=== PATIENT | female | born 1990 | race Two or more races ===

== ENCOUNTER 2019-03-16 18:11 | Emergency (ER) | payer OTHER ==
[2019-03-16 18:37] VITALS: BP 96/60; PULSE 72; TEMP 98.1; BMI 23.2
[2019-03-16] MEDS ORDERED: KETOROLAC TROMETHAMINE 60 MG/2 ML VIAL IM ONE (19:17)
[2019-03-16] MEDS ORDERED: KETOROLAC TROMETHAMINE 60 MG/2 ML VIAL ONE (19:18)
--- NOTE | 2019-03-16 19:58 | PDOC ---
Documentation entered by Berenice Moon SCRIBE, acting as scribe for Rain Carvajal MD. Rain Carvajal MD: This documentation has been prepared by the Sarai albright Adrianna, SCRIBE, under my direction and personally reviewed by me in its entirety. I confirm that the documentation accurately reflects all work, treatment, procedures, and medical decision making performed by me. History of Present Illness - General Chief Complaint: Pain Stated Complaint: R Pelvic Pain History Source: Patient Exam Limitations: No Limitations - History of Present Illness Initial Comments: The patient is a 28 year old female , with a significant PMH of seizures, who presents to the ED for evaluation of right pelvic pain for 1 week. Patient complains of right sided hip flexor pain, that is worse with movement and leaning to the left side. Patient notes she has been cleaning her house this weekend (moving heavy furniture around) and has been carrying her 1 year old, which exacerbates her pain. She denies any trauma to the area, dysuria, or hematuria. Her LMP was last month and normal. She is currently sexually active with her , using condoms. Denies any vaginal discharge. PAST MEDICAL HISTORY: seizures PAST SURGICAL HISTORY: no significant history FAMILY HISTORY: no pertinent history SOCIAL HISTORY: Pt lives with family and is employed. MEDICATIONS: reviewed ALLERGIES: As per nursing notes Adult ROS General: No fevers or chills, no weakness, no weight loss HEENT: No change in vision. No sore throat,. No ear pain CardioVascular: No chest pain or shortness of breath Respiratory:No cough, or wheezing. Gastrointestinal: no nausea, vomiting, diarrhea or constipation, No rectal bleeding Genitourinary: No dysuria, hematuria, or frequency Musculoskeletal: +Right pelvic pain. No joint or muscle swelling Neurologic: No headache, vertigo, dizziness or loss of consciousness Psychiatric: nor depression Skin: No rashes or easy bruising Endocrine: no increased thirst or abnormal weight change Allergic: no skin or latex allergy All other systems reviewed and normal Adult Exam: General: Well-nourished well-developed individual, no acute distress HEENT: Throat: Normal, tonsils normal, no erythema or exudate Neck: Supple, no meningeal signs, no lymphadenopathy Eyes::Pupils equal reactive and round, extraocular motion intact Chest: Nontender to palpation Cardiac: S1-S2 normal, regular rate and rhythm, no murmurs rubs or gallops Respiratory: Lungs clear to auscultation bilateral Abdomen: Soft, nondistended, normal bowel sounds, nontender to palpation diffusely Extremities: +Pain is reproduced on palpation of the right hip flexors. Warm, dry, no cyanosis, clubbing, or edema Skin: No rashes Neuro: Alert and oriented x3, nonfocal exam, grossly intact, normal gait Psych: Normal mood and affect 03/16/19 19:53 Assessment and plan: This is a 28-year-old female comes in complaining of pain in her right pelvic area. However on exam patient does localize the pain to her right hip flexors. Patient said she has been moving a heavy couch and also has a young child that she carries on her opposite hip. Both of these most likely are contributing to the pain. Patient was given Toradol with improvement in symptoms. With a urine and urine were also to send and the urine does show 3+ leukocyte esterase so culture was ordered and patient was started on Macrobid a first dose was given here in the ED. Past History - Past Medical History Allergies/Adverse Reactions: Allergies Allergy/AdvReac Type Severity Reaction Status Date / Time No Known Allergies Allergy Unverified 03/16/19 18:13 Home Medications: Ambulatory Orders Nitrofurantoin Monohyd/M-Cryst [Macrobid -] 100 mg PO BID #10 capsule 03/16/19 levETIRAcetam [Keppra -] 500 mg PO BID 03/16/19 COPD: No Seizures: Yes - Reproductive History Is Patient Now?: No (#): 3 Para: 3 Cervical CA: No Dysfunctional Uterine Bleeding: No Ectopic : No Endometrial CA: No Polycystic Ovaries: No Therapeutic (s) & number: No Tubal Ligation: No Spontaneous : 0 - Psycho Social/Smoking Cessation Hx Smoking History: Never smoked *Physical Exam - Vital Signs Last Vital Signs Temp Pulse Resp BP Pulse Ox 98.1 F 72 18 96/60 100 03/16/19 18:19 03/16/19 18:19 03/16/19 18:19 03/16/19 18:19 03/16/19 18:19 ED Treatment Course - ADDITIONAL ORDERS Additional order review: Laboratory Results 03/16/19 03/16/19 19:00 19:00 Urine Color Yellow Urine Appearance Clear Urine pH 6.0 Urine Protein 1+ H Urine Glucose (UA) Negative Urine Ketones Trace Urine Blood 1+ H Urine Nitrite Negative Urine Bilirubin Negative Urine Urobilinogen 0.2 Ur Leukocyte Esterase 3+ Urine HCG, Qual Negative - Medications Given in the ED: ED Medications Discontinued Medications Generic Name Dose Route Start Last Admin Trade Name Stefany PRN Reason Stop Dose Admin Ketorolac Tromethamine 60 mg 03/16/19 19:17 03/16/19 19:22 Toradol Injection - IM 03/16/19 19:18 60 mg ONCE ONE Administration Discharge - Discharge Information Problems reviewed: Yes Clinical Impression/Diagnosis: Cystitis Strain of flexor muscle of right hip Qualifiers: Encounter type: initial encounter Qualified Code(s): S76.011A - Strain of muscle, fascia and tendon of right hip, initial encounter Condition: Stable Disposition: HOME - Admission No - Follow up/Referral - Patient Discharge Instructions Additional Instructions: For the pain take ibuprofen or Aleve as directed on the bottle. Your urine also showed that you have a urinary tract infection I am starting you on an antibiotic he will take it twice a day for 5 days. I sent a prescription to your pharmacy for Macrobid. Return to the emergency department immediately with ANY new, persistent or worsening symptoms. Continue any medications as previously prescribed by your physician. You should follow up with your primary doctor as soon as possible regarding today's emergency department visit. . Please make sure your doctor reviews the results of your emergency evaluation. Thank you for coming to the Emergency Department today for your care. It was a pleasure to see you today. Please note that your evaluation is INCOMPLETE until you follow-up with your doctor. - Post Discharge Activity
[2019-03-16] MEDS ORDERED: NITROFURANTOIN MACROCRYSTAL 50 MG CAPSULE (FP) ONE (19:59)
[2019-03-16] MEDS ORDERED: NITROFURANTOIN MACROCRYSTAL 50 MG CAPSULE (FP) PO SCH (20:00)
[2019-03-16 21:21] LABS: EPITHELIAL CELLS MODERATE /hpf
== END 2019-03-16 20:03 | disposition home or self-care (01) ==
LOC: FER 18:11
PROC: 3E0233Z Introduction of Anti-inflammatory into Muscle, Percutaneous Approach (ICD-10-PCS; principal; 2019-03-16)
DX: N30.90 Cystitis, unspecified without hematuria (principal); S76.011A Strain of muscle, fascia and tendon of right hip, initial encounter; X50.9XXA Other and unspecified overexertion or strenuous movements or postures, initial encounter; Y93.89 Activity, other specified; Y92.9 Unspecified place or not applicable; G40.909 Epilepsy, unspecified, not intractable, without status epilepticus
CPT/HCPCS: 81003; 81015; 84703; 87086; 96372; 99282-25

== ENCOUNTER 2019-04-12 18:18 | Emergency (ER) | payer OTHER ==
[2019-04-12 18:34] VITALS: BMI 23.1
[2019-04-12 18:42] VITALS: BP 104/63; PULSE 66; TEMP 98.2
[2019-04-12 19:31] LABS: EPITHELIAL CELLS FEW /hpf
--- NOTE | 2019-04-12 19:52 | PDOC ---
Documentation entered by Cele Harvey SCRIBE, acting as scribe for Rain Carvajal MD. Rain Carvajal MD: This documentation has been prepared by the Wes albright Joy, SCRIBE, under my direction and personally reviewed by me in its entirety. I confirm that the documentation accurately reflects all work, treatment, procedures, and medical decision making performed by me. History of Present Illness - General Chief Complaint: Pain, Acute Stated Complaint: R PELVIC PAIN Time Seen by Provider: 04/12/19 19:17 History Source: Patient, Significant Other Exam Limitations: No Limitations - History of Present Illness Initial Comments: 04/12/19 19:37 The patient is a 28 year old female with significant past medical history of seizures, who presents to the ED for evaluation of right pelvic pain for over 1 month. As per patient, she has been to the ED for the same symptoms on . Patient has seen her PCP, Dr. Hernandez who sent her to the ED for evaluation of her appendix and for labs. Patient states she has not taken anything for the pain and that the pain is constant. The patient denies chest pain, shortness of breath, headache and dizziness. Denies fever, chills, nausea, vomiting, diarrhea and constipation. Denies dysuria, frequency, urgency and hematuria. PAST MEDICAL HISTORY: Seizures PAST SURGICAL HISTORY: no significant history FAMILY HISTORY: no pertinent history SOCIAL HISTORY: Pt lives with family. MEDICATIONS: reviewed ALLERGIES: As per nursing notes 04/12/19 19:50 Assessment and plan: This is a 28-year-old female who comes in complaining of right flank/right lower quadrant pain x1 month. I saw patient approximately 1 month ago diagnosed her with a urinary tract infection and possible muscle strain. Patient has been taking anti-inflammatories without relief and did take a course of antibiotics for the urinary tract infection. Patient followed up with her primary care doctor yesterday and was sent to the ED for further evaluation including CAT scan and blood work to rule out appendicitis. Patient on my exam did have some very mild right lower quadrant tenderness otherwise normal exam. CBC, comp urinalysis, urine culture were sent CT abdomen and pelvis were was ordered. 04/12/19 21:20 Reevaluation. Patient is unchanged clinically. Patient's CAT scan was negative for any acute pathology. Patient's blood work was all normal. Patient given copies of her CAT scan and blood work and told to return to follow -up with her primary care doctor. Patient discharged home with her . Past History - Past Medical History Allergies/Adverse Reactions: Allergies Allergy/AdvReac Type Severity Reaction Status Date / Time No Known Allergies Allergy Unverified 03/16/19 18:13 Home Medications: Ambulatory Orders Nitrofurantoin Monohyd/M-Cryst [Macrobid -] 100 mg PO BID #10 capsule 03/16/19 levETIRAcetam [Keppra -] 500 mg PO BID 03/16/19 COPD: No Seizures: Yes - Reproductive History (#): 3 Para: 3 Cervical CA: No Dysfunctional Uterine Bleeding: No Ectopic : No Endometrial CA: No Polycystic Ovaries: No Therapeutic (s) & number: No Tubal Ligation: No Spontaneous : 0 - Psycho Social/Smoking Cessation Hx Smoking History: Never smoked Hx Alcohol Use: No Drug/Substance Use Hx: No Review of Systems - Review of Systems Able to Perform ROS?: Yes Comments:: 04/12/19 19:38 General: No fevers or chills, no weakness, no weight loss HEENT: No change in vision. No sore throat,. No ear pain CardioVascular: No chest pain or shortness of breath Respiratory:No cough, or wheezing. Gastrointestinal: no nausea, vomiting, diarrhea or constipation, No rectal bleeding Genitourinary: No dysuria, hematuria, or frequency Musculoskeletal: +Right pelvic pain, No joint or muscle pain or swelling Neurologic: No headache, vertigo, dizziness or loss of consciousness Psychiatric: nor depression Skin: No rashes or easy bruising Endocrine: no increased thirst or abnormal weight change Allergic: no skin or latex allergy All other systems reviewed and normal *Physical Exam - Vital Signs Last Vital Signs Temp Pulse Resp BP Pulse Ox 98.2 F 66 15 104/63 100 04/12/19 18:18 04/12/19 18:18 04/12/19 18:18 04/12/19 18:18 04/12/19 18:18 - Physical Exam 04/12/19 19:40 General: Well-nourished well-developed individual, no acute distress HEENT: Throat: Normal, tonsils normal, no erythema or exudate Neck: Supple, no meningeal signs, no lymphadenopathy Eyes::Pupils equal reactive and round, extraocular motion intact Chest: Nontender to palpation Cardiac: S1-S2 normal, regular rate and rhythm, no murmurs rubs or gallops Respiratory: Lungs clear to auscultation bilateral Abdomen: +Mild tenderness right lower quadrant, nondistended, normal bowel sounds, no guarding, no rebound. Extremities: Warm, dry, no cyanosis, clubbing, or edema Skin: No rashes Neuro: Alert and oriented x3, nonfocal exam, grossly intact, normal gait Psych: Normal mood and affect ED Treatment Course - LABORATORY CBC & Chemistry Diagram: 04/12/19 20:35 04/12/19 20:35 - ADDITIONAL ORDERS Additional order review: Laboratory Results 04/12/19 04/12/19 18:32 18:32 Urine Color Yellow Urine Appearance Clear Urine pH 7.0 Urine Protein Trace Urine Glucose (UA) Negative Urine Ketones Trace Urine Blood 3+ H Urine Nitrite Negative Urine Bilirubin Negative Urine Urobilinogen 0.2 Ur Leukocyte Esterase Trace H Urine HCG, Qual Negative - RADIOLOGY Radiology Studies Ordered: Category Date Time Status SPIRAL- RENAL-STONE CT [CT] Stat CT Scan 04/12/19 19:40 Ordered Discharge - Discharge Information Problems reviewed: Yes Clinical Impression/Diagnosis: Pain in abdominal muscle of right flank Condition: Stable Disposition: HOME - Admission No - Follow up/Referral - Patient Discharge Instructions Additional Instructions: Tylenol or Motrin as needed for the pain Take the report of the CAT scan and blood work that we gave you back to your primary care doctor for follow-up Return to the emergency department immediately with ANY new, persistent or worsening symptoms. Continue any medications as previously prescribed by your physician. You should follow up with your primary doctor as soon as possible regarding today's emergency department visit. . Please make sure your doctor reviews the results of your emergency evaluation. Thank you for coming to the Emergency Department today for your care. It was a pleasure to see you today. Please note that your evaluation is INCOMPLETE until you follow-up with your doctor. - Post Discharge Activity
[2019-04-12 20:45] LABS: BASO % 0.6 % (0-2.0); EOS % 3.1 % (0-4.5); HEMATOCRIT 34.8 % (32.4-45.2); HEMOGLOBIN 11.3 GM/dl (10.7-15.3); LYMPH % 45.2 % (8-40); MCH 27.4 pg (25.7-33.7); MCHC 32.5 g/dl (32.0-36.0); MEAN CELL VOLUME 84.4 fl (80-96); MEAN PLT VOLUME 7.5 fl (7.5-11.1); MONO % 6.6 % (3.8-10.2); NEUT % 44.5 % (42.8-82.8); PLATELET COUNT 222 K/MM3 (134-434); RBC 4.12 M/mm3 (3.60-5.2); RDW 13.3 % (11.6-15.6); WHITE BLOOD COUNT 4.5 K/mm3 (4.0-10.8)
[2019-04-12 21:01] LABS: BILIRUBIN,TOTAL 0.6 mg/dl (0.2-1); CALCIUM 8.8 mg/dl (8.5-10); CREATININE 0.6 mg/dl (0.55-1.3); POTASSIUM 3.9 mmol/L (3.5-5.1); TOT PROT 7.2 g/dl (6.4-8.2)
== END 2019-04-12 21:24 | disposition home or self-care (01) ==
LOC: FER 18:18
DX: R10.2 Pelvic and perineal pain (principal); G40.909 Epilepsy, unspecified, not intractable, without status epilepticus
CPT/HCPCS: 36415; 74176-TC; 80053; 81003; 81015; 84443; 84703; 85025; 87086; 99282-25